=== PATIENT | female | born 1965 | race African-American/Black ===

== ENCOUNTER 2016-11-26 22:23 | Inpatient (IN) | payer OTHER ==
[~2016-11-26] VITALS: Ht 165.1 cm; Wt 66.2 kg
--- NOTE | ~2016-11-26 | HC ---
[facility] [place] [address] CONSULTATION Name: ALVAREZ BRYAN Room #: 200-I ADM IN M.R.#: [id number] Admission: 11/27/16 Attend Phys: Rob Wilson Discharge: Date of : 61 Report #: [id number] THIS REPORT FOR: //name// CC: Daron Wilson INFECTIOUS DISEASE CONSULTATION REASON FOR CONSULTATION: Left pyelonephritis. HISTORY OF PRESENT ILLNESS: The patient was a 51-year-old with recurring pyelonephritis. She had ureteral reconstruction several years ago. She has a neurogenic bladder. She has had recurring predominantly E. coli, urinary tract infections. She has persistent left flank pain. Over the last month, this has worsened. She has been on an in and out catheter program every 2-4 hours. She does bladder irrigation with gentamicin. Over the last several weeks she has been on Bactrim for a fairly sensitive E. coli that was identified from her urine. She is not improved with this. Therefore, with increased pain last evening, she presented to the Emergency Room with a temperature of 101 degrees. No nausea, vomiting or diarrhea. She has had no cough or sputum production. She has been seen at the [facility] Urology Department where she had reimplantation of her ureter with a psoas hitch procedure. PAST MEDICAL HISTORY: Gastroesophageal reflux, diverticular disease, she had a colon resection for such, C section, oophorectomy. ALLERGIES: None. MEDICATIONS: As noted on her MAR was on Bactrim prior to her admission. FAMILY HISTORY: Ovarian cancer, breast cancer, cervical cancer. SOCIAL HISTORY: Nonsmoker, no significant alcohol intake. REVIEW OF SYSTEMS: Noted above. PHYSICAL EXAMINATION: VITAL SIGNS: Afebrile, hemodynamically stable. GENERAL: She was alert and cooperative and pleasant, in no acute distress, lying in bed, did have pain when she rolled over in bed. HEENT: Unremarkable. SKIN: Unremarkable. LYMPH: Unremarkable. LUNGS: Were clear. HEART: Regular without murmur. ABDOMEN: Soft, mild tenderness in the left lower quadrant. Significant left CVA tenderness. [facility] [address] [place] [address] CONSULTATION Name: BRYANALVAREZ Room #: 200-I [facility] IN [facility].#: [id number] Admission: 11/27/16 Attend Phys: Rob Wilson Discharge: Date of : 61 Report #: [id number] EXTREMITIES: Unremarkable. LABORATORY STUDIES: Hemoglobin 12.5, white count 17.1, platelet count 250,000, she had 3% bands, 81% neutrophils. Sodium 141, potassium 3.8, bicarbonate 25, creatinine 1.1, blood and urine cultures are pending. Urinalysis 6-15 WBCs, rare RBCs, many bacteria. IMPRESSION: A 51-year-old with persistent left flank pain, low grade fever, I am suspecting pyelonephritis. This is despite being on Bactrim. She has a neurogenic bladder and is approximately 3 years post a reconstructive ureter. She also has several previously nonobstructing renal calculi. PLAN: Recommend reimaging of her abdomen to ensure no obstruction. She has been followed by Urology, Dr. Weston and Dr. Barraza. May need to consider [facility] referral for possible nephrectomy if we cannot get this process under control. <ELECTRONICALLY SIGNED> By: Daron Dejesus MD 11/28/16 [id number] Daron Dejesus MD /nt
--- NOTE | ~2016-11-26 | H ---
[facility] [place] [address] [place] [address] HISTORY AND PHYSICAL Name: ALVAREZ BRYAN Room #: 200-I ADM IN ..#: [id number] Admission: 11/27/16 Attend Phys: Jose G Lopez MD Discharge: Date of : 61 Report #: [id number] THIS REPORT FOR: //name// CC: Daron Lopez ATTENDING PHYSICIAN: Jose G Lopez M.D. PRIMARY CARE PHYSICIAN: None. She does see Dr. Daron Dejesus with Infectious Disease regularly. CHIEF COMPLAINT: Left flank pain. HISTORY OF PRESENT ILLNESS: The patient is a 51-year-old -[place] female, who has an extensive history of multiple episodes of complicated pyelonephritis. Her problems date back to 2012 when she had diverticulitis and underwent a sigmoid resection. Apparently, she had complication from that surgery and had a left ureteral injury. She ended up at some point having this surgically repaired and underwent a left ureteral reimplantation with a stent. She has had recurrent infections since then. She has been in and out of the hospital with recurrent complicated pyelonephritis and has been on antibiotics multiple times. Her last time, she was in the hospital was about 3 months ago. She has also developed neurogenic bladder and does not completely empty, although she is able to make some urine, but she often has to self cath if she is only able to void a small amount. She says she is basically being having UTI and pyelonephritis since August of last year and she has been on constant rounds of antibiotics since that time. She has been seeing Dr. Dejesus with Infectious Disease weekly for weekly urine studies. She is currently on Bactrim. She has been on it for the last 2 weeks. She has often had E. coli in her urine. She was specking fevers up to 101 today for the last [address] Dejesus in the office today and he wanted her admitted to the hospital. She says she has been having left flank pain, which is somewhat chronic, but has been significantly worse in the last few days. She says the severity comes in ways. She says this pain is the worse it has been in a while. She did receive some pain medications in the ER. Her pain is still 8/10 and she is rolling around in her bed. She has also been injecting gentamicin into her bladder when she self cath. She says she has been drinking lots of fluid as well as cranberry juice everyday. PAST MEDICAL HISTORY: Left ureteral injury with hydronephrosis, recurrent complicated pyelonephritis, neurogenic bladder, GERD, diverticulitis. PAST SURGICAL HISTORY: Left ureteral injury in 2012 after sigmoid resection. She has had x 3, left ureteral reimplantation with psoas hitch and ureteral stent placed, left nephrostomy tube and NAVEEN drain which have both been removed, ventral hernia repair, bilateral oophorectomy, and left kidney [address] [address] HISTORY AND PHYSICAL Name: ALVAREZ BRYAN Room #: 200-I ADM IN .R.#: [id number] Admission: 11/27/16 Attend Phys: Jose G Lopez MD Discharge: Date of : 61 Report #: [id number] reconstruction. ALLERGIES: No known drug allergies. HOME MEDICATIONS: Gentamicin as directed, Bactrim 1 tab b.i.d, Flomax 0.4 mg q.h.s., hydrocodone 2 tabs q. 6 hours, Tylenol p.r.n., Colace 100 mg b.i.d. p.r.n. SOCIAL HISTORY: The patient denies any tobacco use. She denies any regular alcohol use, but does drink an occasional glass of wine. Denies any drug use. She lives at home with her spouse. 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 FAMILY HISTORY: Significant for grandmother having ovarian cancer and her sister having breast cancer and cervical cancer. REVIEW OF SYSTEMS: Twelve point review of systems was reviewed with the patient, otherwise negative unless stated in the HPI. PHYSICAL EXAMINATION: GENERAL: The patient is an alert female in no acute distress. VITAL SIGNS: Temperature is 37.4, heart rate 82, respirations 22, blood pressure is 131/85, oxygen 97% on room air. HEENT: PERRLA. Sclerae is nonicteric. Oral mucosa is pink and moist. NECK: Supple, no JVD noted. CARDIOVASCULAR: Normal S1, S2. No murmurs, rubs or gallops. RESPIRATORY: Breath sounds are clear bilaterally. No wheezing or rhonchi. Breathing is nonlabored. ABDOMEN: Obese, soft, and slightly tender on the left side. She does have significant left CVA tenderness. Bowel sounds are positive. VASCULAR: No edema noted. Pedal pulses are 2+. NEUROLOGIC: The patient is alert and oriented x 3. Speech is clear. She is answering questions appropriately and following commands. No focal neuro deficits noted. LABORATORY DATA AND DIAGNOSTICS: WBC is 17.1, hemoglobin 12.5, platelets 250, sodium 141, potassium 3.8, BUN 16, creatinine 1.1, glucose 104, lactate is 1.3. UA showed 1+ leukocyte esterase, few wbc's, many bacteria. ASSESSMENT AND PLAN: 1. Recurrent complicated pyelonephritis. Patient is followed closely by Dr. Dejesus with Infectious Disease, who will be consulted. Urine will be sent for culture. We will continue with Rocephin until culture results are back. Previously, in our system, Escherichia coli has been judge sensitive. We will also consult urology, Dr. Barraza, who has followed the patient outpatient, not sure if she is at a point where she can have nephrectomy or not. The patient [address] [address] HISTORY AND PHYSICAL Name: ALVAREZ BRYAN Room #: 200-I ADM IN [facility]#: [id number] Admission: 11/27/16 Attend Phys: Jose G Lopez MD Discharge: Date of : 61 Report #: [id number] says she was told by the surgeon at that she had to wait 3 years after this kidney and ureter construction before they would consider taking the whole kidney out. Continue with pain control. 2. Neurogenic bladder. Continue with self catheterization if needed. 3. Deep venous thrombosis prophylaxis. Place sequential compression devices. We will continue to follow the patient closely throughout the hospitalization and make changes based on clinical status. <ELECTRONICALLY SIGNED> By: CHELSEA Reed 11/27/16 0646 [id number] CHELSEA Reed /nt
--- NOTE | ~2016-11-26 | HC ---
[facility] [address] [place] [address] CONSULTATION Name: IRVINALVAREZ SPARKS Room #: 200-I [facility] IN M.R.#: [id number] Admission: 11/27/16 Attend Phys: Rob Wilson Discharge: 11/30/16 Date of : 61 Report #: [id number] THIS REPORT FOR: //name// CC: Daron Wilson DATE OF SERVICE: 11/29/2016 HISTORY OF PRESENT ILLNESS: The patient is a 51-year-old female with a history of recurrent urinary tract infections. She states that all of her urinary issues began back in 2012, when she had colon surgery and had a ureteral injury that was unrecognized for over a month. She presented back to the hospital, where she had a drain and stent placed, but continued to have issues. She then went to the [facility] and had a ureteral repair done. She states that since that time she has had difficulty with recurrent urinary tract infections. She has also had incomplete bladder emptying, for which she has had to do intermittent catheterization anywhere from p.r.n. to every 3 hours. She states there was a time when she was getting infections constantly. Lately, she states she has been doing better. However, over the last month, she has had an infection that has been very difficult to resolve. In fact, she has been on Cipro without resolution of her symptoms. She states when she catheterizes, she normally only gets about 75 mL. She came to the hospital on this admission with a temperature of 101. PAST MEDICAL HISTORY: Medical illnesses, gastroesophageal reflux and diverticular disease. MEDICATIONS: Per the chart. ALLERGIES: None. FAMILY HISTORY: Per the chart. SOCIAL HISTORY: Per the chart. REVIEW OF SYSTEMS: Per the chart. PHYSICAL EXAMINATION: On examination, her abdomen is soft. There is no flank tenderness. LABORATORY DATA: Her laboratories reveal a white blood cell count of 11.8. Her urine culture on admission shows gram-positive rods. She had a renal scan done, which revealed symmetrical renal perfusion and excretion with 42% function from the left and 58% from the right, with just a slight delayed peak activity on the left. No significant obstruction. [facility] [address] [place] [address] CONSULTATION Name: ALVAREZ BRYAN BRIDGER Room #: 200-I [facility] IN [facility].#: [id number] Admission: 11/27/16 Attend Phys: Rob Wilson Discharge: 11/30/16 Date of : 61 Report #: [id number] IMPRESSION AND PLAN: 1. Recurrent urinary tract infection. Discussed with the patient etiology and therapy. We will await her culture and sensitivity. Did recommend that she may benefit from a daily maintenance antibiotic such as Macrodantin on her dismissal. 2. Incomplete emptying. She will continue on Flomax 0.4 mg daily. She is going to do intermittent catheterization at least once per day to make sure that she is not having any significant residuals which also should help to decrease her infection issues. <ELECTRONICALLY SIGNED> By: Ravinder Turner MD 12/25/16 0652 [id number] Ravinder Turner MD /nt
[~2016-11-26 22:23] MED LIST: A.E.R PADS1 JAR TOP; AAA-MED REC COMPLETE PO; ALEVE220 MG PO; AMOXIL PO; APAP500 PO; AUGMENTIN 500-1 EACH PO; AUGMENTIN 875875 MG PO; BACTRIM DS TAB1 EACH PO; BENTYL20 MG PO; CIPRO250 M1 PO; CIPRO500 MG; CIPRO500 MG PO; CIPROFLOXACIN500 M1 PO; CIPROFLOXACIN500 M3 PO; CITRATE OF MAG296 ML; COLACE100 MG PO; CYTOTEC200 MCG PO; DULCOLAX5 MG PO; ESTRACE1 TUBE TOP; FLAGYL 250 MG250 MG PO; FLAGYL500 MG; FLOMAX0.4 MG PO; GENTAMICIN 0.15 CR; GENTAMICIN80 MG/2 ML; GENTAMICIN80 MG/2 ML IJ; GENTAMICIN80 MG/50 M IM; HYDROCODON-ACE1 EAC7 PO; HYDROCODONE-AP1 EAC6; HYDROCODONE-APA1 TA1 PO; HYOSCYAMINE0.125 M1 SUBLING; IBUPROFEN 400400 M2 PO; IBUPROFEN 600600 M1 PO; KEFLEX500 MG PO; LEVAQUIN 500 M500 M2 PO; LEXAPRO 10 MG T10 M1 PO; MAPAP500 M1 PO; NAPROSYN500 MG PO; NOHOMEMEDICATIONS; NON-ASPIRIN325 MG PO; NORCO 5-325 TA1 EACH PO; NORCO 7.5-3251 EACH PO; PERCOCET 5-3251 EACH PO; PERCOCET PO; PHENERGAN 25 MG25 M1 PO; POLYOX WSR-3011 GM PO; PREDNISONE 10 M10 M1 PO; ROCEPHIN 1 GM VL1 G1 IV; SENOKOT-S1 TA1 PO; SUPRAX400 M1 PO; TRAMADOL 50 MG50 MG PO; TYLENOL325 MG PO; VICODIN 5-3001 EACH PO; ZOFRAN ODT4 MG PO; ZOFRAN4 MG PO
[2016-11-26 22:24] VITALS: BP 131/85
[2016-11-26] MEDS ORDERED: BACTRIM DS TAB1 EACH PO (22:44)
[2016-11-26] MEDS ORDERED: HYDROCODONE-AP1 EAC6 PO (22:45)
[2016-11-26 22:56] LABS: HEMATOCRIT 37.1 % (37.0-47.0); HEMOGLOBIN 12.5 gm/dL (12.0-15.0); MCH 31.5 pg (26.0-34.0); MCHC 33.6 % (28.0-37.0); MCV 93.7 fL (80.0-100.0); PLATELET COUNT 250 thou/uL (150-400); RBC 3.96 mil/uL (4.20-5.00); RDW 14.2 % (10.5-14.5); WBC 17.1 thou/uL (4.0-11.0)
[2016-11-26 22:57] LABS: MANUAL DIFF YES
[2016-11-26 23:06] LABS: CALCIUM 9.2 mg/dL (8.5-10.1); CREATININE 1.1 mg/dL (0.6-1.3); POTASSIUM 3.8 mmol/L (3.5-5.1)
[2016-11-26 23:37] LABS: URINE BILIRUBIN NEGATIVE (Negative); URINE BLOOD 1+ (Negative); URINE COLOR YELLOW; URINE GLUCOSE-RANDOM* NEGATIVE (Negative); URINE KETONES NEGATIVE (Negative); URINE LEUKOCYTES-REFLEX 1+ (Negative); URINE PROTEIN (DIPSTICK) NEGATIVE (Negative); URINE UROBILINOGEN 0.2 E.U./dl (0.2-1.0)
[2016-11-26 23:51] LABS: CASTS None Seen /LPF (None Seen); CRYSTALS None Seen /LPF (None Seen); SQUAMOUS >10 Many /LPF (0-3); URINE RBC 0-2 Rare /HPF (0-2); URINE WBC-REFLEX 6-15 Few /HPF (0-5)
[2016-11-27 00:44] LABS: ABSOLUTE NEUTROPHILS 14.4 thou/uL (1.4-8.2); LARGE PLATELETS RARE; TOTAL CELL COUNT 100
[2016-11-27 00:58] VITALS: BP 106/65
[2016-11-27 05:44] VITALS: BP 104/71
[2016-11-27 07:10] VITALS: BP 104/66
[2016-11-27 11:45] VITALS: BP 109/64
[2016-11-27 16:45] VITALS: BP 125/78
[2016-11-27 19:10] VITALS: BP 115/77
[2016-11-28 00:31] VITALS: BP 132/71
[2016-11-28 03:03] VITALS: BP 109/74
[2016-11-28 05:01] LABS: HEMATOCRIT 34.2 % (37.0-47.0); HEMOGLOBIN 11.1 gm/dL (12.0-15.0); MCH 31.8 pg (26.0-34.0); MCHC 32.5 % (28.0-37.0); MCV 97.9 fL (80.0-100.0); PLATELET COUNT 216 thou/uL (150-400); RDW 14.3 % (10.5-14.5); WBC 11.8 thou/uL (4.0-11.0)
[2016-11-28 05:24] LABS: MANUAL DIFF YES
[2016-11-28 05:43] LABS: ALBUMIN 3.1 g/dL (3.4-5.0); CALCIUM 8.7 mg/dL (8.5-10.1); CREATININE 0.9 mg/dL (0.6-1.3); PHOSPHORUS 3.4 mg/dL (2.5-4.9); POTASSIUM 3.6 mmol/L (3.5-5.1)
[2016-11-28 07:10] VITALS: BP 109/73
[2016-11-28 07:50] LABS: TOTAL CELL COUNT 100
[2016-11-28 11:05] VITALS: BP 120/68
[2016-11-28 17:00] VITALS: BP 129/78
[2016-11-28 20:05] VITALS: BP 132/82
[2016-11-29 03:34] VITALS: BP 115/59
[2016-11-29 07:10] VITALS: BP 117/79
[2016-11-29 19:18] VITALS: BP 147/65
[2016-11-30 07:30] VITALS: BP 131/95
[2016-11-30] MEDS ORDERED: HYDROCODONE-AP1 EAC6 PO (09:23)
[2016-11-30 10:16] VITALS: BP 131/95
[2016-11-30 10:21] VITALS: BP 131/95
[2016-11-30] MEDS ORDERED: CEFTIN 250250 MG/52 PO (10:23)
== END 2016-11-30 11:00 | disposition home or self-care (01) | DRG 872 ==
LOC: ER 22:23 → EROBS 11-27 00:19 → 2N 11-27 00:19
PROVIDERS: Emergency Medicine; Hospitalist
DX: A41.9 Sepsis, unspecified organism (principal); N12 Tubulo-interstitial nephritis, not specified as acute or chronic; B96.20 Unspecified Escherichia coli [E. coli] as the cause of diseases classified elsewhere; N31.9 Neuromuscular dysfunction of bladder, unspecified; Z80.3 Family history of malignant neoplasm of breast; K21.9 Gastro-esophageal reflux disease without esophagitis; K57.90 Diverticulosis of intestine, part unspecified, without perforation or abscess without bleeding; Z80.41 Family history of malignant neoplasm of ovary; Z80.49 Family history of malignant neoplasm of other genital organs; Z79.2 Long term (current) use of antibiotics; Z90.49 Acquired absence of other specified parts of digestive tract; Z79.899 Other long term (current) drug therapy; Z87.442 Personal history of urinary calculi; Z90.722 Acquired absence of ovaries, bilateral; Z93.6 Other artificial openings of urinary tract status
CPT/HCPCS: 10797

== ENCOUNTER 2017-12-19 11:10 | Emergency (ER) | payer BC ==
[~2017-12-19] VITALS: Ht 165.1 cm; Wt 62.1 kg
--- NOTE | ~2017-12-19 | EKG ---
[place] [address] [place] [address] ELECTROCARDIOGRAM REPORT Name: IRVINALVAREZ SPARKS Room #: [facility]#: [id number] Admission: 12/19/17 Attend Phys: Discharge: 12/19/17 Date of : 61 Report #: [id number] THIS REPORT FOR: //name// 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: Deepti WOOD : 1965 Requested By: Janice Rodarte Order Number: [id number] MD: Florian Davis Measurements Intervals [place] Rate: 96 P: 69 NC: 178 QRS: 13 QRSD: 76 T: -2 QT: 354 QTc: 448 Interpretive Statements Sinus rhythm Nonspecific T wave abnormality Compared to ECG 05/27/2015 07:21:13 Nonspecific T wave abnormality is now present Electronically Signed On 12-20-2017 8:16:23 OPHTHALMIC PATHOLOGIST by Florian Davis [email or web address] <ELECTRONICALLY SIGNED> By: Florian Davis MD, [facility] 12/20/17 0816 1152 115 Florian Davis MD, [facility] /EPI
[~2017-12-19 11:10] MED LIST changes: +CEFTIN 250250 MG/52 PO; +HYDROCODONE-AP1 EAC6 PO
[2017-12-19 11:50] LABS: ABSOLUTE NEUTROPHILS 5.5 thou/uL (1.4-8.2); BASOPHILS 1.3 % (0.0-2.0); EOSINOPHILS 0.1 % (0.0-3.0); HEMATOCRIT 40.7 % (37.0-47.0); HEMOGLOBIN 13.9 gm/dL (12.0-15.0); MCH 32.4 pg (26.0-34.0); MCHC 34.2 g/dL (28.0-37.0); MCV 94.7 fL (80.0-100.0); MONOCYTES 9.2 % (1.0-8.0); PLATELET COUNT 257 thou/uL (150-400); POLYS 78.4 % (36.0-66.0); RDW 13.8 % (10.5-14.5)
[2017-12-19 12:00] LABS: ANION GAP 10 mmol/L (7-16); BUN 11 mg/dL (7-18); CALCIUM 9.2 mg/dL (8.5-10.1); CHLORIDE 103 mmol/L (98-107); CO2 25 mmol/L (21-32); CREATININE 1.2 mg/dL (0.6-1.0); GLUCOSE 109 mg/dL (74-106); POTASSIUM 3.8 mmol/L (3.5-5.1); SODIUM 138 mmol/L (136-145)
[2017-12-19 12:09] LABS: SGOT 21 U/L (15-37); SGPT 26 U/L (30-65); TOTAL BILIRUBIN 0.2 mg/dL (<0.1-1.0); TOTAL PROTEIN 7.5 g/dL (6.4-8.2); TROPONIN-I < 0.04 ng/mL (<0.06)
[2017-12-19 12:32] LABS: URINE BILIRUBIN NEGATIVE (Negative); URINE BLOOD 3+ (Negative); URINE CLARITY SL CLOUDY; URINE COLOR YELLOW; URINE GLUCOSE-RANDOM* NEGATIVE (Negative); URINE KETONES 1+ (Negative); URINE LEUKOCYTES TRACE (Negative); URINE NITRITE POSITIVE (Negative); URINE PROTEIN (DIPSTICK) TRACE (Negative); URINE UROBILINOGEN 0.2 E.U./dl (0.2-1.0)
[2017-12-19 12:58] LABS: CASTS None Seen /LPF (None Seen); MUCUS >6 Heavy strn/LPF (None Seen); SQUAMOUS >10 Many /LPF (0-3); URINE WBC 6-15 Few /HPF (0-5)
[2017-12-19 12:59] LABS: BACTERIA >30 Many /HPF (None Seen); CRYSTALS None Seen /LPF (None Seen); URINE RBC 3-10 Few /HPF (0-2)
[2017-12-19] MEDS ORDERED: PROMETHAZINE/C118 ML PO (14:16)
[2017-12-19] MEDS ORDERED: OSELB75 PO (14:16)
[2017-12-19 14:27] VITALS: BP 110/65
[2018-03-10] MEDS ORDERED: FLAGYL500 MG PO (11:12)
[2018-03-10] MEDS ORDERED: CIPRO500 MG PO (11:12)
[2018-03-10] MEDS ORDERED: PROTONIX40 M1 PO (11:13)
[2018-07-25] MEDS ORDERED: ZOFRAN ODT4 MG PO (05:25)
[2018-07-25] MEDS ORDERED: NORCO 7.5-3251 EACH PO (05:25)
[2018-07-25] MEDS ORDERED: CEFUROXIME250 MG PO (05:25)
[2018-07-25] MEDS ORDERED: SENNA-DOCUSATE1 EACH PO (05:25)
[2018-07-25] MEDS ORDERED: IBUPROFEN 600600 M1 PO (05:25)
[2018-07-30] MEDS ORDERED: BACTRIM DS TAB1 EACH PO (10:42)
== END 2017-12-19 14:29 | disposition home or self-care (01) ==
LOC: ER 11:10
PROVIDERS: Physician Assistant
DX: J11.1 Influenza due to unidentified influenza virus with other respiratory manifestations (principal); N11.9 Chronic tubulo-interstitial nephritis, unspecified; K21.9 Gastro-esophageal reflux disease without esophagitis; Z90.721 Acquired absence of ovaries, unilateral